=== PATIENT | female | born 1945 | race Two or more races ===

== ENCOUNTER → 2016-07-13 | Outpatient (CLI) | payer OTHER | LOC: FIMAGING 09:46 | DX: Z12.31 Encounter for screening mammogram for malignant neoplasm of breast (principal); Z85.3 Personal history of malignant neoplasm of breast; Z92.3 Personal history of irradiation | CPT/HCPCS: G0202 ==

== ENCOUNTER → 2017-06-07 | Outpatient (CLI) | payer OTHER | LOC: FIMAGING 10:29 | PROVIDERS: ATTEND Nurse Practitioner Family | DX: Z13.820 Encounter for screening for osteoporosis (principal); M85.89 Other specified disorders of bone density and structure, multiple sites ==

== ENCOUNTER → 2017-08-08 | Outpatient (CLI) | payer OTHER | LOC: FIMAGING 11:56 | PROVIDERS: ATTEND Family Medicine | DX: Z12.31 Encounter for screening mammogram for malignant neoplasm of breast (principal); Z85.3 Personal history of malignant neoplasm of breast ==

== ENCOUNTER → 2017-09-08 | Outpatient (CLI) | payer OTHER | LOC: FIMAGING 11:25 | PROVIDERS: ATTEND Family Medicine | DX: Z03.89 Encounter for observation for other suspected diseases and conditions ruled out (principal) ==

== ENCOUNTER 2017-10-03 17:57 | Emergency (ER) | payer OTHER ==
--- NOTE | 2017-10-03 18:06 | EDPHY ---
H & P Stated Complaint: bilat earache/mag[place]anes x 10 days/stopped abx 1 wk ago Time Seen by Provider: 10/03/17 18:05 HPI/ROS: CHIEF COMPLAINT: Otalgia, headache, vertigo HISTORY OF PRESENT ILLNESS: The patient presents to the ED with a 3 week history of bilateral otalgia. She was treated by her primary care provider for otitis media. She finished antibiotics a week ago. She reports that she has had no improvement of her otalgia. She also complains of some pruritus involving her external auditory canal. The patient does have a history of diabetes. She has also been experiencing a vague headache which she describes his primary along the vertex of her scalp. She denies any peripheral numbness or weakness. She denies any photophobia or visual changes. The patient denies any history of fall or trauma. She is not anticoagulated. REVIEW OF SYSTEMS: A comprehensive 10 point review of systems is otherwise negative aside from elements mentioned in the history of present illness. Source: Patient - Personal History Current Tetanus Diphtheria and Acellular Pertussis (TDAP): Unsure Tetanus Vaccine Date: < 10 years - Medical/Surgical History Hx Asthma: No Hx Chronic Respiratory Disease: No Hx Diabetes: Yes Hx Cardiac Disease: No Hx Renal Disease: No Hx Cirrhosis: No Hx Alcoholism: No Hx HIV/AIDS: No Hx Splenectomy or Spleen Trauma: No Other PMH: HTN, DM, high cholesterol, breast cancer, lymphoma, radical right mastectomy, hysterectomy, tonsillectomy, C section x 2 - Social History Smoking Status: Never smoked - Physical Exam Exam: General Appearance: Alert, no distress Eyes: Pupils equal and round no pallor or injection ENT, Mouth: Mucous membranes moist, TMs are clear bilaterally without evidence of effusion or infection Respiratory: There are no retractions, lungs are clear to auscultation Cardiovascular: Regular rate and rhythm Gastrointestinal: Abdomen is soft and nontender, no masses, bowel sounds normal Neurological: A&O, normal motor function, normal sensory exam, normal cranial nerves Skin: Warm and dry, no rashes Musculoskeletal: Neck is supple nontender Extremities: symmetrical, full range of motion Psychiatric: Patient is oriented X 3, there is no agitation Constitutional: Initial Vital Signs Temperature (C) 36.9 C 10/03/17 18:02 Heart Rate 66 10/03/17 18:02 Respiratory Rate 17 07/30/18 18:02 Blood Pressure 174/80 H 10/03/17 18:02 O2 Sat (%) 97 10/03/17 18:02 O2 Delivery Mode Room Air Allergies/Adverse Reactions: No Known Allergies Allergy (Verified 10/03/17 18:01) Home Medications: Medication Instructions Recorded ATENOLOL 01/06/09 metFORMIN HCL 01/06/09 Medical Decision Making - Diagnostics Imaging Results: Imaging Impressions Head CT 10/03/17 18:18 Impression: 1. No significant intracranial abnormality seen. If symptoms worsen, additional imaging may be necessary. Findings discussed with Scottie Kim M.D. at 18:42 hour, 10/03/2017. ED Course/Re-evaluation: The patient presents to the ED with complaints of 3 weeks of bilateral ear pain. She has no evidence of an obvious ear infection noted on exam. Additionally the patient has been experiencing some symptoms consistent with benign positional vertigo although she is asymptomatic while in the emergency department. The patient did undergo a CT scan of her head given her age, complaints of headache, ear pain and vertigo. The results of this study demonstrate no obvious intracranial process. At this point time the etiology of the patient's symptoms are uncertain. I have provided the patient a prescription for meclizine for her symptoms of vertigo. I would like the patient to follow up with our on-call ENT physician for further evaluation of her symptoms. Differential Diagnosis: Differential diagnosis considered includes otitis media, mastoiditis, external otitis media, benign positional vertigo, central vertigo Departure - Departure Disposition: Home, Routine, Self-Care Clinical Impression: Vertigo, Ear pain Condition: Good Instructions: Vertigo (ED) Additional Instructions: 1. Meclizine as needed for symptoms of vertigo and dizziness. 2. I recommend Tylenol 650 mg every 6 hr for your ear pain. 3. Please follow up with our Ear Nose Throat specialist for further evaluation of your ear pain. 4. I see no evidence of an obvious infection based upon your workup today. Referrals: CORRY VERMA [Primary Care Provider] - As per Instructions Joey Pryor MD [Medical Doctor] - As per Instructions
[2017-10-03 19:03] VITALS: BP 162/84
== END 2017-10-03 19:03 | disposition home or self-care (01) ==
DX: R42 Dizziness and giddiness (principal); H92.09 Otalgia, unspecified ear; R51 Headache; I10 Essential (primary) hypertension; E11.9 Type 2 diabetes mellitus without complications

== ENCOUNTER 2018-04-08 10:28 | Observation (INO) | payer OTHER ==
--- NOTE | 2018-04-08 10:30 | EDPHY ---
H & P Time Seen by Provider: 04/08/18 10:30 HPI/ROS: CHIEF COMPLAINT: Right arm swelling erythema HISTORY OF PRESENT ILLNESS: The patient presents the ED with 2 days of increased right arm swelling, erythema and pain. The patient has a history of breast cancer was treated surgically with a mastectomy in 2003. The patient denies any chest pain or shortness of breath. She does report global fatigue. She has mild discomfort throughout the right upper extremity. She denies any acute numbness or weakness. The patient denies any abdominal pain, vomiting or diarrhea. She reports her symptoms are moderate in nature. REVIEW OF SYSTEMS: A comprehensive 10 point review of systems is otherwise negative aside from elements mentioned in the history of present illness. Source: Patient - Personal History Tetanus Vaccine Date: < 10 years - Medical/Surgical History Hx Asthma: No Hx Chronic Respiratory Disease: No Hx Diabetes: Yes Hx Cardiac Disease: No Hx Renal Disease: No Hx Cirrhosis: No Hx Alcoholism: No Hx HIV/AIDS: No Hx Splenectomy or Spleen Trauma: No Other PMH: HTN, DM, high cholesterol, breast cancer, lymphoma, radical right mastectomy, hysterectomy, tonsillectomy, C section x 2 - Social History Smoking Status: Never smoked - Physical Exam Exam: General Appearance: Elderly female, appears uncomfortable Eyes: Pupils equal and round no pallor or injection ENT, Mouth: Dry mucous membranes Respiratory: There are no retractions, lungs are clear to auscultation Cardiovascular: Regular rate and rhythm Gastrointestinal: Abdomen is soft and nontender, no masses, bowel sounds normal Neurological: 5/5 strength noted all 4 extremities Skin: Erythema and swelling noted to the right upper extremity Musculoskeletal: Neck is supple nontender Extremities: Swelling noted to the right upper extremity, 2+ radial and ulnar pulse noted Constitutional: Initial Vital Signs Temperature (C) 36.5 C 04/08/18 10:32 Heart Rate 67 04/08/18 10:32 Respiratory Rate 18 04/08/18 10:32 Blood Pressure 170/62 H 04/08/18 10:32 O2 Sat (%) 98 04/08/18 10:32 O2 Delivery Mode Room Air Allergies/Adverse Reactions: No Known Allergies Allergy (Verified 10/03/17 18:01) Home Medications: Medication Instructions Recorded ATENOLOL 01/06/09 metFORMIN HCL 01/06/09 Medical Decision Making - Diagnostics Imaging Results: Imaging Impressions Extremity Venous Study 04/08/18 11:16 Impression: No deep venous thrombosis right arm. Findings and recommendations discussed with Emergency Department physician, Scottie Kim at 12:43 hour, 04/08/2018. Final report concurs with initial preliminary interpretation. ED Course/Re-evaluation: Patient presents the ED for evaluation of erythema and swelling to her right arm. The patient does have lymphedema from her prior mastectomy. She typically does not have symptoms of pain erythema. The patient was noted to be neurovascularly intact upon arrival. The patient had an IV established. She is noted to have a normal CBC and a reassuring procalcitonin. She was taken for an ultrasound of her extremity which demonstrated no evidence of a DVT. The patient does have fairly significant cellulitis involving the entire upper extremity. The patient will be started on IV cefazolin and will be admitted to the hospital for observation this evening. Consultation was made with the hospitalist service. The patient will be admitted by Dr. Pickett. Differential Diagnosis: Differential diagnosis considered includes cellulitis, DVT, abscess, necrotizing fasciitis - Data Points Laboratory Results: Laboratory Results 04/08/18 10:55 04/08/18 10:55 04/08/18 04/08/18 10:55 10:55 WBC 8.60 10^3/uL 10^3/uL (3.80-9.50) RBC 4.67 10^6/uL 10^6/uL (4.18-5.33) Hgb 13.7 g/dL g/dL (12.6-16.3) Hct 42.4 % % (38.0-47.0) MCV 90.8 fL fL (81.5-99.8) MCH 29.3 pg pg (27.9-34.1) MCHC 32.3 g/dL L g/dL (32.4-36.7) RDW 13.8 % % (11.5-15.2) Plt Count 278 10^3/uL 10^3/uL (150-400) MPV 9.9 fL fL (8.7-11.7) Neut % (Auto) 74.4 % H % (39.3-74.2) Lymph % (Auto) 18.3 % % (15.0-45.0) [place] % (Auto) 6.2 % % (4.5-13.0) Eos % (Auto) 0.3 % L % (0.6-7.6) Baso % (Auto) 0.3 % % (0.3-1.7) Nucleat RBC Rel Count 0.0 % % (0.0-0.2) Absolute Neuts (auto) 6.40 10^3/uL 10^3/uL (1.70-6.50) Absolute Lymphs (auto) 1.57 10^3/uL 10^3/uL (1.00-3.00) Absolute Monos (auto) 0.53 10^3/uL 10^3/uL (0.30-0.80) Absolute Eos (auto) 0.03 10^3/uL 10^3/uL (0.03-0.40) Absolute Basos (auto) 0.03 10^3/uL 10^3/uL (0.02-0.10) Absolute Nucleated RBC 0.00 10^3/uL 10^3/uL (0-0.01) Immature Gran % 0.5 % % (0.0-1.1) Immature Gran # 0.04 10^3/uL 10^3/uL (0.00-0.10) Sodium 136 mEq/L mEq/L (135-145) Potassium 4.5 mEq/L mEq/L (3.5-5.2) Chloride 107 mEq/L mEq/L (97-110) Carbon Dioxide 18 mEq/l L mEq/l (22-31) Anion Gap 11 mEq/L mEq/L (6-14) BUN 24 mg/dL H mg/dL (7-23) Creatinine 0.7 mg/dL mg/dL (0.6-1.0) Estimated GFR > 60 Glucose 313 mg/dL H mg/dL (70-100) Calcium 9.8 mg/dL mg/dL (8.5-10.4) Procalcitonin 0.07 ng/mL ng/mL (0.02-0.10) Medications Given: Discontinued Medications Sodium Chloride (Ns) 1,000 mls @ 0 mls/hr IV ONCE ONE; Wide Open PRN Reason: Protocol Stop: 04/08/18 10:47 Last Admin: 04/08/18 11:07 Dose: 1,000 mls Cefazolin Sodium/Dextrose (Ancef 1 Gm (Premix)) 50 mls @ 200 mls/hr IV EDNOW ONE PRN Reason: Protocol Stop: 04/08/18 13:13 Last Admin: 04/08/18 13:05 Dose: 50 mls Departure - Departure Disposition: [facility] Inpatient Acute Clinical Impression: Lymphedema of right arm, Cellulitis Condition: Good Referrals: CORRY VERMA [Primary Care Provider] - As per Instructions
[2018-04-08] MEDS ORDERED: NS 1,000 ML IV ONE (10:46)
[2018-04-08 11:15] LABS: PLATELET COUNT 278 10^3/uL (150-400)
[2018-04-08] MEDS ORDERED: [UNRECOGNIZED DRUG - REMARK] EACHEYE PRN (14:41)
[2018-04-08] MEDS ORDERED: CETIRIZINE 10 MG TAB PO PRN (14:41)
[2018-04-08] MEDS ORDERED: FLUTICASONE NASAL 120 SPRAYS/16 GM MDI EACHNARE PRN (14:41)
[2018-04-08] MEDS ORDERED: D50W 25 GM/50 ML SYR IVP PRN (14:44)
[2018-04-08] MEDS ORDERED: ONDANSETRON DISINTEGRATING 4 MG TAB PO PRN (14:45)
[2018-04-08] MEDS ORDERED: NS 1,000 ML IV SCH (14:45)
[2018-04-08] MEDS ORDERED: ACETAMINOPHEN 325 MG TAB PO PRN (14:45)
[2018-04-08] MEDS ORDERED: ONDANSETRON 4 MG/2 ML VIAL IVP PRN (14:45)
[2018-04-08] MEDS ORDERED: oxyCODONE IR 5 MG TAB PO PRN (14:45)
[2018-04-08] MEDS ORDERED: HYDROCODONE/APAP 5/325 TAB PO PRN (14:45)
--- NOTE | 2018-04-08 15:06 | PDGENHP ---
History and Physical - Chief Complaint righ arm swelling, pain - History of Present Illness 73 yo female presents with increased right arm swelling, erythema and pain. The patient has a history of breast cancer was treated surgically with a mastectomy in 2003. The patient denies any chest pain or shortness of breath. She has mild discomfort throughout the right upper extremity. She denies any acute numbness or weakness. The patient denies any abdominal pain, vomiting or diarrhea. She reports her symptoms are moderate in nature. She denies fever In the ER, she is noted not to have leukocytosis. She had an US of the RUE which is negative for DVT She has been started on Cefazolin IV PMH: HTN, DM, high cholesterol, breast cancer, lymphoma, radical right mastectomy, hysterectomy, tonsillectomy, C section x 2 - Social History Smoking Status: Never smoked, social ETOH FmHx: non contributory History Information - Allergies/Home Medication List Allergies/Adverse Reactions: No Known Allergies Allergy (Verified 10/03/17 18:01) Home Medications: Atenolol [Tenormin 100 mg (*)] 50 mg PO HS 04/08/18 [Last Taken 04/07/18] Atenolol [Tenormin 100 mg (*)] 100 mg PO DAILY 04/08/18 [Last Taken 04/08/18] Calcium Carbonate [Oyster Shell Calcium 500 mg (*)] 500 mg PO BID@, [Last Taken 04/08/18 09:00] Cetirizine [ZyrTEC 10 mg (*)] 10 mg PO HS PRN 04/08/18 [Last Taken 04/07/18] Cholecalciferol Vit D3 [Vitamin D3 2000 units tab (OTC)] 4,000 units PO DAILY@ 04/08/18 [Last Taken 04/07/18] Diclofenac Sodium [Voltaren 75 MG (*)] 75 mg PO DAILY 04/08/18 [Last Taken 04/08] Fluticasone Nasal [Flonase Nasal [place] (RX)] 2 sprays EACHNARE DAILY PRN [Last Taken Unknown] Herbals/Supplements -Info Only 1 ea PO DAILY 04/08/18 [Last Taken Unknown] Ketotifen Fumarate [Allergy Eye Drops] 1 drop EACHEYE DAILY PRN 04/08/18 [Last Taken Unknown] Losartan Potassium [Cozaar 50 mg (*)] 100 mg PO DAILY@13 04/08/18 [Last Taken ] Multivitamins [Multivitamin (*)] 1 each PO DAILY@12 04/08/18 [Last Taken ] Vitamin B Complex [Vitamin B Complex (OTC)] 1 each PO DAILY 04/08/18 [Last Taken 04/08/18] glyBURIDE [Glyburide] 2.5 mg PO DAILY@18 PRN 04/08/18 [Last Taken 04/07/18 see note] metFORMIN SR [Glucophage XR 750 mg (*)] 750 mg PO BIDMEAL 04/08/18 [Last Taken 04/08/18] I have personally reviewed and updated: medical history, social history - Social History Smoking Status: Never smoked Review of Systems Review of Systems: ROS: 10pt was reviewed & negative except for what was stated in HPI & below Physical Exam Physical Exam: Temp Pulse Resp BP Pulse Ox 36.7 C 62 16 176/102 H 99 04/08/18 14:48 04/08/18 14:48 04/08/18 14:48 04/08/18 14:48 04/08/18 14:48 Constitutional: no apparent distress Eyes: PERRL Ears, Nose, Mouth, Throat: dry mucous membranes Cardiovascular: regular rate and rhythym, edema (trace RUE edema) Respiratory: no respiratory distress, no rales or rhonchi, clear to auscultation Gastrointestinal: normoactive bowel sounds, soft, non-tender abdomen, no palpable masses Skin: warm, rash, other (RUE erythema, swelling, no induration) Neurologic: AAOx3 Psychiatric: interacting appropriately, not anxious, not encephalopathic Lymph, Heme, Immunologic: No petechiae Lab Data & Imaging Review 04/08/18 10:55 04/08/18 10:55 WBC 8.60 10^3/uL (3.80-9.50) 04/08/18 10:55 RBC 4.67 10^6/uL (4.18-5.33) 04/08/18 10:55 Hgb 13.7 g/dL (12.6-16.3) 04/08/18 10:55 Hct 42.4 % (38.0-47.0) 04/08/18 10:55 MCV 90.8 fL (81.5-99.8) 04/08/18 10:55 MCH 29.3 pg (27.9-34.1) 04/08/18 10:55 MCHC 32.3 g/dL (32.4-36.7) L 04/08/18 10:55 RDW 13.8 % (11.5-15.2) 04/08/18 10:55 Plt Count 278 10^3/uL (150-400) 04/08/18 10:55 MPV 9.9 fL (8.7-11.7) 04/08/18 10:55 Neut % (Auto) 74.4 % (39.3-74.2) H 04/08/18 10:55 Lymph % (Auto) 18.3 % (15.0-45.0) 04/08/18 10:55 [place] % (Auto) 6.2 % (4.5-13.0) 04/08/18 10:55 Eos % (Auto) 0.3 % (0.6-7.6) L 04/08/18 10:55 Baso % (Auto) 0.3 % (0.3-1.7) 04/08/18 10:55 Nucleat RBC Rel Count 0.0 % (0.0-0.2) 04/08/18 10:55 Absolute Neuts (auto) 6.40 10^3/uL (1.70-6.50) 04/08/18 10:55 Absolute Lymphs (auto) 1.57 10^3/uL (1.00-3.00) 04/08/18 10:55 Absolute Monos (auto) 0.53 10^3/uL (0.30-0.80) 04/08/18 10:55 Absolute Eos (auto) 0.03 10^3/uL (0.03-0.40) 04/08/18 10:55 Absolute Basos (auto) 0.03 10^3/uL (0.02-0.10) 04/08/18 10:55 Absolute Nucleated RBC 0.00 10^3/uL (0-0.01) 04/08/18 10:55 Immature Gran % 0.5 % (0.0-1.1) 04/08/18 10:55 Immature Gran # 0.04 10^3/uL (0.00-0.10) 04/08/18 10:55 Sodium 136 mEq/L (135-145) 04/08/18 10:55 Potassium 4.5 mEq/L (3.5-5.2) 04/08/18 10:55 Chloride 107 mEq/L (97-110) 04/08/18 10:55 Carbon Dioxide 18 mEq/l (22-31) L 04/08/18 10:55 Anion Gap 11 mEq/L (6-14) 04/08/18 10:55 BUN 24 mg/dL (7-23) H 04/08/18 10:55 Creatinine 0.7 mg/dL (0.6-1.0) 04/08/18 10:55 Estimated GFR > 60 04/08/18 10:55 Glucose 313 mg/dL (70-100) H 04/08/18 10:55 Calcium 9.8 mg/dL (8.5-10.4) 04/08/18 10:55 Procalcitonin 0.07 ng/mL (0.02-0.10) 04/08/18 10:55 Assessment & Plan Assessment: Cellulitis (Acute) Lymphedema of right arm (Acute)
[2018-04-08] MEDS: LOSARTAN POTASSIUM 50 MG TAB PO SCH (15:36)
[2018-04-08] MEDS: INSULIN LISPRO 100 UNIT/ML SC SCH (17:06)
[2018-04-08] MEDS ORDERED: ATENOLOL 50 MG TAB PO SCH (21:00)
[2018-04-09 04:54] LABS: PLATELET COUNT 286 10^3/uL (150-400)
[2018-04-09 08:12] VITALS: BP 160/70
[2018-04-09] MEDS: INSULIN LISPRO 100 UNIT/ML SC SCH (08:13)
[2018-04-09] MEDS ORDERED: DICLOFENAC SODIUM 75 MG TAB PO SCH (09:00)
[2018-04-09] MEDS ORDERED: VITAMIN B COMPLEX 1 EA CAP/TAB PO SCH (09:00)
[2018-04-09] MEDS ORDERED: ATENOLOL 50 MG TAB PO SCH (09:00)
[2018-04-09] MEDS ORDERED: CHOLECALCIFEROL VIT D3 2,000 UNITS TAB/CAP PO SCH (12:00)
[2018-04-09] MEDS ORDERED: metFORMIN SR 500 MG TAB PO ONE (12:18)
[2018-04-09] MEDS: LOSARTAN POTASSIUM 50 MG TAB PO SCH (12:23)
--- NOTE | 2018-04-09 12:40 | PDDCSUM ---
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 Started on IV abx with appropriate response. Now ready for d/c on Augmentin for an additional 7 days. Will have f/u this week with her PCP. BP is noted to be elevated mostly in the systolic 160's. She wishes to discuss further mgmt with her PCP. NO changes were made to her home regimen. Of note she is on Losartan 100mg daily. DDX: #RUE Cellulitis #Lymphedema of right arm #Metabolic Acidosis #HTN, chronic #Hx of Breast cancer #Hyperglycemia, NIDDM Exam: NAD AAOX3 RRR CTA B S/NT/ND RUE: ERYTHEMA SIGNIFICANTLY IMPROVED. EDEMA IMPROVING WELL MEDS: SEE MED REC F/U: PER ABOVE TOTAL TIME SPENT ON D/C IS 35 MINS
[2018-04-09] MEDS ORDERED: LOSARTAN POTASSIUM 50 MG TAB PO SCH (13:00)
--- NOTE | 2018-04-09 14:36 | ASMTCMCOM ---
CM Note CM Note Notes: Patient is a 73 year old female who presented to [facility] ED with increased right arm swelling, erythema and pain. Patient has history of breast cancer, radical right mastectomy, hysterectomy, HTN, DM, High Cholesterol, lymphoma, tonsillectomy, C section x2. Patient admitted for acute cellulitis, acute lymphedema of right arm. Patient admitted and treated with IV antibiotics, will discharge home today independent and follow up with PCP Uriel in one week. CM met with patient prior to discharge, patient states she will be going home with her friend who was present and she shares is a retired nurse. Her daughter is also a nurse and supports her from [place], patient states she has a lot of good friends that help her. Patient states she will be following up with her family doctor. CM described and delivered IM, patient signed for receipt (placed in back of chart). Patient to follow up as recommended, CM available to support if any additional CM needs arise. Date Signed: 04/09/2018 02:36 PM Electronically Signed By:Alejandra Ng
[2018-04-09] MEDS ORDERED: metFORMIN SR 500 MG TAB PO SCH (18:00)
== END 2018-04-09 14:30 | disposition home or self-care (01) ==
LOC: F3N 14:46
PROVIDERS: ADMIT Family Medicine; ATTEND Family Medicine
DX: L03.113 Cellulitis of right upper limb (principal); I97.2 Postmastectomy lymphedema syndrome; E87.2 Acidosis; E86.9 Volume depletion, unspecified; I10 Essential (primary) hypertension; E11.65 Type 2 diabetes mellitus with hyperglycemia; E78.5 Hyperlipidemia, unspecified; Z79.84 Long term (current) use of oral hypoglycemic drugs; Z85.3 Personal history of malignant neoplasm of breast; Z90.11 Acquired absence of right breast and nipple; Z90.710 Acquired absence of both cervix and uterus
CPT/HCPCS: 93971; 96361; 96365; 96366; 96376; 99285; G0378; J0690

== ENCOUNTER 2018-04-16 15:38 | Emergency (ER) | payer OTHER ==
--- NOTE | 2018-04-16 15:55 | EDPHY ---
H & P Stated Complaint: diarrhea Time Seen by Provider: 04/16/18 15:55 HPI/ROS: CHIEF COMPLAINT: Diarrhea HISTORY OF PRESENT ILLNESS: The patient presents the ED with diarrhea and abdominal discomfort. The patient does have a history of recent cellulitis involving the right upper extremity treated as an inpatient here [facility]. She was discharged home on Augmentin. She did developed diarrhea shortly thereafter. She was started on a different antibiotic by her primary care provider last week. The patient reports that her erythema involving the right upper extremity has entirely resolved. She does complain of crampy abdominal discomfort. She denies any acute neurologic complaints. She denies additional acute complaints. REVIEW OF SYSTEMS: A comprehensive 10 point review of systems is otherwise negative aside from elements mentioned in the history of present illness. Source: Patient Exam Limitations: No limitations - Personal History Current Tetanus/Diphtheria Vaccine: Yes Current Tetanus Diphtheria and Acellular Pertussis (TDAP): Yes Tetanus Vaccine Date: < 10 years - Medical/Surgical History Hx Asthma: No Hx Chronic Respiratory Disease: No Hx Diabetes: Yes Hx Cardiac Disease: Yes Hx Renal Disease: No Hx Cirrhosis: No Hx Alcoholism: No Hx HIV/AIDS: No Hx Splenectomy or Spleen Trauma: No Other PMH: HTN, DM, high cholesterol, breast cancer, lymphoma, radical right mastectomy, hysterectomy, tonsillectomy, C section x 2 - Social History Smoking Status: Never smoked - Physical Exam Exam: General Appearance: Alert, no distress Eyes: Pupils equal and round no pallor or injection ENT, Mouth: Mucous membranes moist Respiratory: There are no retractions, lungs are clear to auscultation Cardiovascular: Regular rate and rhythm Gastrointestinal: Mild tenderness, no peritoneal signs, normal bowel sounds Neurological: A&O, normal motor function, normal sensory exam, normal cranial nerves Skin: Warm and dry, no rashes, no cellulitic changes noted to the right upper extremity. Markedly improved from my previous visit the Musculoskeletal: Neck is supple nontender Extremities: symmetrical, full range of motion Constitutional: Initial Vital Signs Temperature (C) 36.9 C 04/16/18 15:50 Heart Rate 60 04/16/18 15:50 Respiratory Rate 16 04/16/18 15:50 Blood Pressure 192/93 H 04/16/18 15:50 O2 Sat (%) 98 04/16/18 15:50 O2 Delivery Mode Room Air Allergies/Adverse Reactions: No Known Allergies Allergy (Verified 04/16/18 15:49) Home Medications: Medication Instructions Recorded Atenolol [Tenormin 100 mg (*)] 50 mg PO HS 04/08/18 Atenolol [Tenormin 100 mg (*)] 100 mg PO DAILY 04/08/18 Calcium Carbonate [Oyster Shell 500 mg PO BID@09,12 04/08/18 Calcium 500 mg (*)] Cetirizine [ZyrTEC 10 mg (*)] 10 mg PO HS PRN 04/08/18 Cholecalciferol Vit D3 [Vitamin D3 4,000 units PO DAILY@12 04/08/18 2000 units tab (OTC)] Diclofenac Sodium [Voltaren 75 MG 75 mg PO DAILY 04/08/18 (*)] Fluticasone Nasal [Flonase Nasal 2 sprays EACHNARE DAILY PRN 04/08/18 [place]] Herbals/Supplements -Info Only 1 ea PO DAILY 04/08/18 Ketotifen Fumarate [Allergy Eye 1 drop EACHEYE DAILY PRN 04/08/18 Drops] Losartan Potassium [Cozaar 50 mg 100 mg PO DAILY@13 04/08/18 (*)] Multivitamins [Multivitamin (*)] 1 each PO DAILY@12 04/08/18 Vitamin B Complex [Vitamin B 1 each PO DAILY 04/08/18 Complex (OTC)] glyBURIDE [Glyburide] 2.5 mg PO DAILY@18 PRN 04/08/18 metFORMIN SR [Glucophage XR 750 mg 750 mg PO BIDMEAL 04/08/18 (*)] Medical Decision Making ED Course/Re-evaluation: Patient presents the ED for evaluation of abdominal pain and diarrhea after starting antibiotics for upper extremity cellulitis. Patient was noted to have benign abdominal examination. Workup in the emergency department demonstrates a completely resolved cellulitis involving the upper extremity. Patient did have C diff testing performed which was negative. The patient has no significant leukocytosis or metabolic derangement. The patient will be advised to stop taking her oral antibiotics and begin taking Imodium and probiotics. Patient is advised to follow up with her primary care provider for a recheck this week. Differential Diagnosis: Differential diagnosis considered includes Clostridium difficile colitis, dehydration, renal failure, metabolic derangement, recurrent cellulitis - Data Points Laboratory Results: Laboratory Results 04/16/18 16:10 04/16/18 16:10 04/16/18 04/16/18 04/16/18 16:10 16:10 15:59 WBC 6.25 10^3/uL 10^3/uL (3.80-9.50) RBC 4.77 10^6/uL 10^6/uL (4.18-5.33) Hgb 13.8 g/dL g/dL (12.6-16.3) Hct 42.0 % % (38.0-47.0) MCV 88.1 fL fL (81.5-99.8) MCH 28.9 pg pg (27.9-34.1) MCHC 32.9 g/dL g/dL (32.4-36.7) RDW 13.6 % % (11.5-15.2) Plt Count 354 10^3/uL 10^3/uL (150-400) MPV 9.6 fL fL (8.7-11.7) Neut % (Auto) 32.3 % L % (39.3-74.2) Lymph % (Auto) 56.6 % H % (15.0-45.0) [place] % (Auto) 8.2 % % (4.5-13.0) Eos % (Auto) 1.8 % % (0.6-7.6) Baso % (Auto) 0.6 % % (0.3-1.7) Nucleat RBC Rel Count 0.0 % % (0.0-0.2) Absolute Neuts (auto) 2.02 10^3/uL 10^3/uL (1.70-6.50) Absolute Lymphs (auto) 3.54 10^3/uL H 10^3/uL (1.00-3.00) Absolute Monos (auto) 0.51 10^3/uL 10^3/uL (0.30-0.80) Absolute Eos (auto) 0.11 10^3/uL 10^3/uL (0.03-0.40) Absolute Basos (auto) 0.04 10^3/uL 10^3/uL (0.02-0.10) Absolute Nucleated RBC 0.00 10^3/uL 10^3/uL (0-0.01) Immature Gran % 0.5 % % (0.0-1.1) Immature Gran # 0.03 10^3/uL 10^3/uL (0.00-0.10) Sodium 134 mEq/L L mEq/L (135-145) Potassium 4.4 mEq/L mEq/L (3.5-5.2) Chloride 103 mEq/L mEq/L (97-110) Carbon Dioxide 22 mEq/l mEq/l (22-31) Anion Gap 9 mEq/L mEq/L (6-14) BUN 23 mg/dL mg/dL (7-23) Creatinine 0.7 mg/dL mg/dL (0.6-1.0) Estimated GFR > 60 Glucose 126 mg/dL H mg/dL (70-100) Calcium 9.9 mg/dL mg/dL (8.5-10.4) C. difficile Tox (PCR) NEGATIVE (NEGATIVE) Departure - Departure Disposition: Home, Routine, Self-Care Clinical Impression: Diarrhea Condition: Good Instructions: Acute Diarrhea (ED) Additional Instructions: 1. Please return to the ED for worsening pain, fever, vomiting or other concerns. 2. I recommend stopping antibiotics at this point time as your upper extremity infection has resolved. 3. Please follow-up with your primary care provider as directed. 4. Please begin Imodium as needed for management of your diarrhea. Referrals: KRYSTINA BOURGEOIS [Medical Doctor] - As per Instructions
[2018-04-16 16:19] LABS: PLATELET COUNT 354 10^3/uL (150-400)
[2018-04-16 17:26] VITALS: BP 155/86
== END 2018-04-16 18:24 | disposition home or self-care (01) ==
DX: R19.7 Diarrhea, unspecified (principal); R35.0 Frequency of micturition

== ENCOUNTER → 2018-08-17 | Outpatient (CLI) | payer OTHER | LOC: FIMAGING 14:03 ==